=== PATIENT | female | born 1980 | race African-American/Black ===

== ENCOUNTER 2017-08-16 00:06 | Emergency (ER) | payer OTHER ==
[~2017-08-16] VITALS: Ht 175.3 cm; Wt 98.0 kg
[2017-08-16 00:08] VITALS: BP 124/58; PULSE 98; RESP 18; TEMP 98.2; O2SAT 100
[2017-08-16] MEDS ORDERED: SODIUM CHLORID 0.9% 500 ML INJ 500 ML IV ONE (01:00)
[2017-08-16] MEDS ORDERED: CLINDAMYCIN 900 MG/NS PREMIX 50 ML IV ONE (01:00)
[2017-08-16] MEDS ORDERED: ACETAMINOPHEN 325 MG TAB PO ONE (01:00)
--- NOTE | 2017-08-16 01:12 | PD ---
HPI Chief Complaint: Edema Time Seen by Provider: 00:16 Travel History International Travel<30 days: No Contact w/Intl Traveler<30days: No Traveled to known affect area: No History of Present Illness HPI The patient is a 37 year old female who presents to the [facility] emergency department with a history of reported right facial swelling that began on Thursday approximately a week ago. The patient reports that the swelling was progressing up into the right eyelid area. She reports that she has been icing the area and the swelling around the eye has resolved. She reports that she does have some drainage from the corner of her right eye that was yellow to green in color. She denies having any conjunctival injection. She denies having any vision changes. She denies having any pain with moving her eye. She reports that she continues to have swelling along the right side of her nose. The patient reports that she also has pressure and pain in the right cheek. She denies having any nasal discharge or nasal congestion. She denies having any cough, congestion, or postnasal drip. She reports incidentally that week ago she did break a tooth in the right upper jaw. She denies having any dental pain since then. On review of systems otherwise, she denies having any known fevers or chills, neck pain, chest pain, shortness of breath, abdominal pain, vomiting, urinary symptoms, or neurologic symptoms. She does have chronic intermittent diarrhea that she attributes to having irritable bowel syndrome. FOR[facility]LY [facility], LATER [facility] Past Medical History Narrative Medical The patient's past medical history is significant for irritable bowel syndrome, diabetes mellitus, acid reflux, autoimmune related gastritis, beta thalassemia anemia. Anemia: Yes (betalthessemia) Diabetes: Yes Patient Takes Glucophage: No Diminished Hearing: No Gastrointestinal Disorders: Yes (autoimmunie gastritis) Tetanus Vaccination: < 5 Years Influenza Vaccination: No ?: Not LMP: 08/09/2017 Tubal Ligation: Yes Past Surgical History Narrative Surgical The patient's past surgical history is significant for a hernia repair of the abdomen, bilateral tubal ligation, cholecystectomy Abdominal Surgery: Yes (hernia repair abd) Cholecystectomy: Yes Gynecologic Surgery: Yes (tubial ligation) Social History Alcohol Use: No Tobacco Use: No Substance Use: No Allergies-Medications (Allergen,Severity, Reaction): Coded Allergies: Penicillins (Verified Allergy, Severe, 4/1/18) hives Comments The patient additionally reports having an allergy to aspirin, antihistamine Review of Systems Except as stated in HPI: all other systems reviewed are Neg General / Constitutional: No: Fever Eyes: Positive: Drainage, No: Visual changes HENT: Positive: Headaches, Dental Difficulties, No: Rhinorrhea, Congestion, Neck Stiffness, Neck Pain Cardiovascular: No: Chest Pain or Discomfort Respiratory: No: Shortness of Breath Gastrointestinal: No: Nausea, Vomiting, Diarrhea, Abdominal Pain Genitourinary: No: Dysuria Musculoskeletal: No: Pain Skin: No Rash Neurologic: Positive: Headache, No: Weakness, Focal Abnormalities, Change in Mentation, Slurred Speech, Sensory Disturbance Psychiatric: No: Depression Endocrine: No: Polydipsia Hematologic/Lymphatic: No: Easy Bruising Physical Exam Narrative General: The patient is a well-developed well-nourished female in no acute distress. Head and Neck exam: Head is normocephalic atraumatic. Eyes: EOMI, pupils are equal round and reactive to light. Sinuses: The patient reports tenderness on palpation of the right maxillary sinus. Nose: Midline septum with erythematous edematous nasal mucosa and a clear nasal discharge. The patient reports tenderness on palpation overlying the medial aspect of the eye over the nasolacrimal duct. Mouth: The patient has areas of poor dentition with dental decay noted. No louisa abscess formation. Moist mucus membranes. Posterior oropharynx is not erythematous. No tonsillar hypertrophy. Uvula midline. Airway patent. Neck: No palpable lymphadenopathy. No nuchal rigidity. No thyromegaly. Cardiovascular: Regular rate and rhythm without murmurs, gallops, or rubs. Lungs: Clear to auscultation bilaterally. No wheezes, rhonchi, or rales. Abdomen: Soft, without tenderness to palpation in all 4 quadrants of the abdomen. No guarding, rebound, or rigidity. Normal bowel sounds are audible. No tenderness on palpation of McBurney's point. Extremities: No clubbing, cyanosis, or edema. 2+ pulses in all 4 extremities. No calf tenderness on palpation. Back: No spinous process tenderness to palpation. No costovertebral angle tenderness to palpation. Neurologic Exam: Grossly nonfocal Skin Exam: No rash noted. Intact skin that is warm and dry. Data Data Last Documented VS Vital Signs Date Time Temp Pulse Resp B/P (MAP) Pulse Ox O2 Delivery O2 Flow Rate FiO2 4/1/18 00:08 98.2 98 18 124/58 (80) [address] Brain W/O Iv Contrast(Rout) (08/16/17 00:46) Ct Facial Bones W Iv Contrast (08/16/17 ) Electrocardiogram (08/16/17 00:46) Complete Blood Count With Diff (08/16/17 00:46) Basic Metabolic Panel (Bmp) (08/16/17 00:46) C-Reactive Protein (Crp) (08/16/17 00:46) Iv Access Insert/Monitor (08/16/17 00:46) Ecg Monitoring (08/16/17 00:46) Oximetry (08/16/17 00:46) Ed Urine Pregnancytest Poc (08/16/17 00:46) Sodium Chlorid 0.9% 500 Ml Inj (Ns 500 M (08/16/17 01:00) Acetaminophen (Tylenol) (08/16/17 01:00) Clindamycin 900 Mg/Ns Premix (Cleocin 90 (08/16/17 01:00) Iohexol 350 Inj (Omnipaque 350 Inj) (08/16/17 02:31) Labs Laboratory Tests Test 08/16/17 02:08 White Blood Count 7.0 TH/MM3 Red Blood Count 3.58 MIL/MM3 Hemoglobin 7.3 GM/DL Hematocrit 24.2 % Mean Corpuscular Volume 67.6 FL Mean Corpuscular Hemoglobin 20.3 PG Mean Corpuscular Hemoglobin Concent 30.1 % Red Cell Distribution Width 19.9 % Platelet Count 265 TH/MM3 Mean Platelet Volume 9.9 FL Neutrophils (%) (Auto) 65.4 % Lymphocytes (%) (Auto) 21.5 % Monocytes (%) (Auto) 11.6 % Eosinophils (%) (Auto) 1.2 % Basophils (%) (Auto) 0.3 % Neutrophils # (Auto) 4.6 TH/MM3 Lymphocytes # (Auto) 1.5 TH/MM3 Monocytes # (Auto) 0.8 TH/MM3 Eosinophils # (Auto) 0.1 TH/MM3 Basophils # (Auto) 0.0 TH/MM3 CBC Comment DIFF FINAL Differential Comment Blood Urea Nitrogen 7 MG/DL Creatinine 0.84 MG/DL Random Glucose 95 MG/DL Calcium Level 7.9 MG/DL Sodium Level 141 MEQ/L Potassium Level 3.8 MEQ/L Chloride Level 107 MEQ/L Carbon Dioxide Level 26.8 MEQ/L Anion Gap 7 MEQ/L Estimat Glomerular Filtration Rate 91 ML/MIN C-Reactive Protein 0.44 MG/DL MDM Medical Decision Making Medical Screen Exam Complete: Yes Emergency Medical Condition: Yes Medical Record Reviewed: Yes Differential Diagnosis Dental abscess, versus maxillary sinusitis, versus nasal lacrimal duct infection , versus nasolacrimal duct blockage, versus facial abscess Narrative Course During the course of the patient's emergency department visit, the patient's history, examination, and differential diagnosis were reviewed with the patient. The patient was placed on a environmental monitoring specialist with oximetry and frequent blood pressure monitoring. The patient had IV access obtained and blood work sent for analysis. The patient had an EKG done on arrival that shows a sinus rhythm heart rate of 78, QRS duration 91 ms, QTC [address] segment elevation. The patient was initially provided clindamycin 900 mg IV, normal saline at 500 mL bolus, Tylenol for pain. The patient's laboratory studies were reviewed and remarkable for white count 7 , hemoglobin 7.3 and a patient with a known prior history of beta thalassemia anemia, platelets 265, monocytes 11.6 basic metabolic profile is remarkable for a calcium of 7.9, C-reactive protein 0.44 Radiology studies were reviewed and remarkable for CT scan of the brain showed no acute abnormality. CT scan of the facial bones showed cellulitis in the soft tissues of the right face and anterior right maxilla and mandible associated with extensive dental caries and probable small periapical abscesses in several right mandibular teeth. No drainable abscess. The patient will be discharged home on clindamycin. The patient was instructed to follow-up with the dentist as soon as possible. She was encouraged to make an appointment in the morning for follow-up. The patient is resting comfortably and feels better, is alert and in no distress. The patient's results and examination findings were discussed with the patient. The repeat examination is unremarkable and benign. The history, exam, diagnostic testing, and current condition do not suggest any significant pathology to warrant further testing, continued ED treatment, admission, or surgical evaluation at this point. The vital signs have been stable. The patient does not have uncontrollable pain, intractable vomiting, or other significant symptoms. The patient's condition is stable and appropriate for discharge. The patient will pursue further outpatient evaluation with a primary care physician or other designated or consulting physician as indicated in the discharge instructions. The patient expressed understanding and was agreeable with this plan. Diagnosis Primary Impression: Infected dental caries Additional Impression: Facial cellulitis Referrals: Dentist 2 days Patient Instructions: Cellulitis (ED), Dental Caries (ED), General Instructions Med/Other Pt SpecificInfo: Prescription(s) given Scripts Hydrocodone-Acetaminophen (Hydrocodone-Acetaminophen) 5-325 mg Tab 1 TAB PO Q6H Y for PAIN, #9 TAB 0 Refills Prov: Rasheeda Cruz MD 08/16/17 Clindamycin (Clindamycin) 300 Mg Cap 300 MG PO Q6H for Infection, #39 CAP 0 Refills Prov: Rasheeda Cruz MD 08/16/17 Disposition: 01 DISCHARGE HOME Condition: Stable Rasheeda Cruz MD Aug 16, 2017 01:12
[2017-08-16] MEDS ORDERED: IOHEXOL 350 MG/ML 10 ML VIAL (for RAD DIAG) IVCONTRAST ONE (02:31)
--- NOTE | 2017-08-16 02:42 | RADRPT ---
EXAM DATE/TIME: 08/16/2017 02:27 [facility] COMPARISON: No previous studies available for comparison. INDICATIONS : Cephalgia. RADIATION DOSE: 42.72 CTDIvol (mGy) MEDICAL HISTORY : Diabetes mellitus type 2. SURGICAL HISTORY : Tubal ligation. Hernia repair. ENCOUNTER: Initial ACUITY: 4 - 6 days PAIN SCALE: 8/10 LOCATION: cranial TECHNIQUE: Multiple contiguous axial images were obtained of the head. Using automated exposure control and adj ustment of the mA and/or kV according to patient size, radiation dose was kept as low as reasonably a chievable to obtain optimal diagnostic quality images. DICOM format image data is available electro nically for review and comparison. FINDINGS: CEREBRUM: The ventricles are normal for age. No evidence of midline shift, mass lesion, hemorrhage or acute in farction. No extra-axial fluid collections are seen. POSTERIOR FOSSA: The cerebellum and brainstem are intact. The 4th ventricle is midline. The cerebellopontine angle i s unremarkable. EXTRACRANIAL: The visualized portion of the orbits is intact. SKULL: The calvaria is intact. No evidence of skull fracture. CONCLUSION: Normal examination for a patient of this age. Dimitry Avila MD on August 16, 2017 at 2:32 Board Certified Radiologist. This report was verified electronically.
[2017-08-16 02:56] LABS: AUTOMATED NEUTROPHIL # 4.6 TH/MM3 (1.8-7.7); BASOPHIL % 0.3 % (0.0-2.0); EOSINOPHIL # 0.1 TH/MM3 (0-0.4); EOSINOPHIL % 1.2 % (0.0-4.0); HEMATOCRIT 24.2 % (35.0-46.0); HEMOGLOBIN 7.3 GM/DL (11.6-15.3); LYMPH % 21.5 % (9.0-44.0); LYMPHOCYTE # 1.5 TH/MM3 (1.0-4.8); MEAN CELL VOLUME 67.6 FL (80.0-100.0); MEAN CORPUSCULAR HEMOGLOBIN 20.3 PG (27.0-34.0); MEAN CORPUSCULAR HGB CONC 30.1 % (32.0-36.0); MEAN PLATELET VOLUME 9.9 FL (7.0-11.0); MONO % 11.6 % (0.0-8.0); MONOCYTE # 0.8 TH/MM3 (0-0.9); NEUT % 65.4 % (16.0-70.0); PLATELET COUNT 265 TH/MM3 (150-450); RED BLOOD COUNT 3.58 MIL/MM3 (4.00-5.30); RED CELL DISTRIBUTION WIDTH 19.9 % (11.6-17.2)
--- NOTE | 2017-08-16 02:58 | RADRPT ---
EXAM DATE/TIME: 08/16/2017 02:27 [facility] COMPARISON: No previous studies available for comparison. INDICATIONS : Right facial swelling and redness. IV CONTRAST: 75 cc Omnipaque 350 (iohexol) IV RADIATION DOSE: 50.19 CTDIvol (mGy) MEDICAL HISTORY : Diabetes mellitus type 2. SURGICAL HISTORY : Tubal ligation. Hernia repair. ENCOUNTER: Initial ACUITY: 4 - 6 days PAIN SCALE: 8/10 LOCATION: Right facial TECHNIQUE: Volumetric scanning of the facial bones was performed. Using automated exposure control and adjustme nt of the mA and/or kV according to patient size, radiation dose was kept as low as reasonably achiev able to obtain optimal diagnostic quality images. DICOM format image data is available electronicall y for review and comparison. FINDINGS: There are inflammatory changes in the soft tissues of the right face around the anterior maxilla and mandible. Findings are most characteristic of cellulitis. There are extensive changes of dental maryann s are, especially in the right mandible. There is periapical lucency around several right mandibular teeth probably represent small periapical abscesses. No acute fracture. Mild mucosal thickening in the paranasal sinuses. CONCLUSION: 1. Cellulitis in the soft tissues of the right face and anterior right maxilla and mandible associate d with extensive dental caries and probable small periapical abscesses in several right mandibular te eth. No drainable abscess. Dimitry Avila MD on August 16, 2017 at 2:41 Board Certified Radiologist. This report was verified electronically.
[2017-08-16 03:22] LABS: BICARBONATE 26.8 MEQ/L (21.0-32.0); C-REACTIVE PROTEIN 0.44 MG/DL (0.00-0.30); CALCIUM 7.9 MG/DL (8.5-10.1); CREATININE 0.84 MG/DL (0.50-1.00)
[2017-08-16] MEDS ORDERED: CLIN300C5 PO (03:31)
[2017-08-16] MEDS ORDERED: HYDR-3516 PO (03:31)
--- NOTE | 2017-08-16 12:15 | EKG ---
Date Performed: 08/16/2017 Time Performed: 03:07:12 PTAGE: 37 years EKG: Sinus rhythm LOW QRS VOLTAGE IN PRECORDIAL LEADS BORDERLINE ECG NO PREVIOUS TRACING DOCTOR: Robert Wilde Interpretating Date/Time 08/16/2017 12:13:16
== END 2017-08-16 03:52 | disposition home or self-care (01) ==
LOC: NEPC 00:06
DX: K02.9 Dental caries, unspecified (principal); L03.211 Cellulitis of face; R51 Headache; D64.9 Anemia, unspecified; E11.9 Type 2 diabetes mellitus without complications; Z87.19 Personal history of other diseases of the digestive system; Z88.0 Allergy status to penicillin
CPT/HCPCS: 70450; 70487; 80048; 84703; 85025; 86140; 93005; 96374; 99285; J7040; Q9967